=== PATIENT | male | born 1985 | race Caucasian/White ===

== ENCOUNTER 2019-06-13 01:21 | Emergency (ER) | payer OTHER ==
[2019-06-13] MEDS ORDERED: Ondansetron 4 MG/2 ML SDV IVPUSH ONE (01:49)
[2019-06-13] MEDS ORDERED: HYDROmorphone 0.5 MG/0.5 ML Syringe IVPUSH ONE (01:49)
[2019-06-13] MEDS ORDERED: Ondansetron 4 MG/2 ML SDV ONE (01:54)
--- NOTE | 2019-06-13 01:55 | EDM.PDOC ---
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 He is otherwise uninjured. He last drank some water just prior to his injury, and last ate around 17:00 [place] time. He took 5 tablets of ibuprofen en route to the ED. He states that his last tetanus vaccination was less than 5 years ago. The patient does not have a PCP. He has not received an influenza vaccine this season, but agreed to receive one here. Treatments SHOE ASSOCIATE: Reports: NSAIDS - Related Data Allergies Allergy/AdvReac Type Severity Reaction Status Date / Time No Known Allergies Allergy Verified 06/13/19 01:33 Home Meds: Home Meds . [No Known Home Meds] 06/13/19 [History] Past Medical History Musculoskeletal History: Reports: Fracture (left radius, left wrist) - Past Surgical History HEENT Surgical History: Reports: Oral Surgery (wisdom teeth extraction) Respiratory Surgical History: Reports: Other (See Below) (Repair of pectus excavatum) Musculoskeletal Surgical History: Reports: ORIF (left wrist) Social & Family History - Tobacco Use Smoking Status *Q: Never Smoker - Caffeine Use Caffeine Use: Reports: None - Alcohol Use Alcohol Use History: No - Recreational Drug Use Recreational Drug Use: No - Living Situation & Occupation Living situation: Reports: , with Spouse 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 ED EXAM, GENERAL - Physical Exam Exam: See Below Exam Limited By: No Limitations General Appearance: Alert, WD/WN, No Apparent Distress Extremities: Other (There is an ulnar deviation deformity to the left 4th finger. There is a stellate laceration to the palmar proximal aspect of the left 4th finger that extends into the webbing between the 4th and 5th fingers. There is also a laceration to the proximal radial aspect of the left 3rd finger. The patient is able to flex his left 3rd and 5th fingers, but is unable to convincingly flex his left 4th finger - it is unclear if this is because of the deformity or because of a tendinous injury. All 5 fingers are reasonably warm to palpation, and the patient reports normal sensation to all 5 fingers.) Course - Vital Signs Last Recorded V/S: Last Vital Signs Temp 36.4 C 06/13/19 01:28 Pulse 72 06/13/19 01:28 Resp 16 06/13/19 01:28 BP 139/81 06/13/19 01:28 Pulse Ox 99 06/13/19 01:28 - Orders/Labs/Meds Orders: Active Orders 24 hr Category Date Time Status Influenza Vaccine Charge [RC] .DISCHARGE Care 06/13/19 01:52 Active Hand Comp Min 3V Lt [CR] Stat Exams 06/13/19 01:48 Taken Pharmacy to Dose - InFluenza V [Pharmacy to Dose - Med 06/13/19 01:52 Once InFluenza Vaccine] 1 each IM ONETIME ONE Sodium Chloride 0.9% [Normal Saline] 1,000 ml Med 06/13/19 02:00 Active IV ASDIRECTED Medication Orders Sodium Chloride (Normal Saline) 1,000 mls @ 100 mls/hr IV ASDIRECTED MALGORZATA Last Admin: 06/13/19 02:00 Dose: 100 mls/hr Influenza Virus Vaccine (Pharmacy To Dose - Influenza Vaccine) 1 each IM ONETIME ONE Stop: 06/13/19 01:53 Meds: Medications Generic Name Dose Route Start Last Admin Trade Name Freq PRN Reason Stop Dose Admin Sodium Chloride 1,000 mls @ 100 mls/hr 06/13/19 02:00 06/13/19 02:00 Normal Saline IV 100 mls/hr ASDIRECTED MALGORZATA Administration Influenza Virus Vaccine 1 each 06/13/19 01:52 Pharmacy To Dose - Influenza Vaccine IM 06/13/19 01:53 ONETIME ONE Discontinued Medications Generic Name Dose Route Start Last Admin Trade Name Freq PRN Reason Stop Dose Admin Hydromorphone HCl 0.5 mg 06/13/19 01:49 06/13/19 02:01 Dilaudid IVPUSH 06/13/19 01:50 0.5 mg ONETIME ONE Administration Cefazolin Sodium/Dextrose 2 gm 50 mls @ 100 mls/hr 06/13/19 02:12 06/13/19 02 :22 / Premix IV 06/13/19 02:41 100 mls/hr ONETIME STA Administration Influenza Virus Vaccine 60 mcg 06/13/19 03:00 Fluzone Quad [id number] Syringe IM 06/13/19 03:01 .ONCE ONE Ondansetron HCl 4 mg 06/13/19 01:49 06/13/19 02:01 Zofran IVPUSH 06/13/19 01:50 4 mg ONETIME ONE Administration Ondansetron HCl Confirm 06/13/19 01:54 06/13/19 02:01 Zofran Administered 06/13/19 01:55 Not Given Dose 4 mg .ROUTE .[email or web address] ONE - Re-Assessments/Exams Free Text/Narrative Re-Assessment/Exam: 06/13/19 01:50 I think it likely that the patient's left 4th finger is fractured. I have ordered x-rays of his left hand to evaluate. In the meantime, his nurse will place an IV, and he will receive some IV fluid, IV Dilaudid, and IV Zofran. 06/13/19 02:05 5-view radiographs of the left hand appear to demonstrate a transverse fracture across the proximal phalanx of the left 4th finger, with moderate ulnar displacement and dorso-radial angulation. There is a small step-off at the MCP articular surface of the proximal 4th phalanx. There also appears to be a spiral fracture of the distal 4th metacarpal bone, with [id number] postero -ulnar displacement, and a comminuted intra-articular fracture of the 4th metacarpal head. No other bony injuries are seen. Formal read per the Radiologist pending. 06/13/19 02:[address] Hussein at 02:09. He would like us to give the patient 2 g of IV Ancef. Because I cannot rule out a tendinous injury to the 4th finger, he will come to the ED to evaluate the patient, and if no tendinous injury is found , he would like to place the patient into observation with the intention of taking him to the OR at 7 AM. If a tendinous injury is found, the patient will need to be transferred to [facility]. 06/13/19 02:39 Dr. Hussein has evaluated the patient and feels that the fractures are too unstable to manage here. He recommends transfer to [facility]. He recommends a simple dressing, presently. The patient does not have a preference of [facility] versus [facility]. I have pushed the x-ray images to [facility]. 06/13/19 02:53 Case discussed with Elly at [facility] One call at 02:42. Case then discussed with Dr. Frost, Hand Surgeon on-call at [facility], at 02:46. He accepted the patient for transfer to their facility. The patient will go to the ED, but then be taken to pre-op. Departure - Departure Time of Disposition: 02:53 Disposition: DC/Tfer to Acute Hospital 02 Condition: Fair Clinical Impression: Fracture of fourth metacarpal bone of left hand, Open fracture of proximal phalanx of left ring finger - Discharge Information *PRESCRIPTION DRUG MONITORING PROGRAM REVIEWED*: Not Applicable *COPY OF PRESCRIPTION DRUG MONITORING REPORT IN PATIENT EVIE: Not Applicable Forms: ED Department Discharge - My Orders Last 24 Hours: My Active Orders 06/13/19 01:48 Hand Comp Min 3V Lt [CR] Stat 06/13/19 01:52 Influenza Vaccine Charge [RC] .DISCHARGE Pharmacy to Dose - InFluenza V [Pharmacy to Dose - InFluenza Vaccine] 1 each IM ONETIME ONE 06/13/19 02:00 Sodium Chloride 0.9% [Normal Saline] 1,000 ml IV ASDIRECTED - Assessment/Plan Last 24 Hours: My Active Orders 06/13/19 01:48 Hand Comp Min 3V Lt [CR] Stat 06/13/19 01:52 Influenza Vaccine Charge [RC] .DISCHARGE Pharmacy to Dose - InFluenza V [Pharmacy to Dose - InFluenza Vaccine] 1 each IM ONETIME ONE 06/13/19 02:00 Sodium Chloride 0.9% [Normal Saline] 1,000 ml IV ASDIRECTED
[2019-06-13] MEDS ORDERED: Sodium Chloride 0.9% 1,000 ML IV SCH (02:00)
[2019-06-13] MEDS ORDERED: ceFAZolin 2 GM in Premix Bag 1 BAG IV STA (02:12)
[2019-06-13] MEDS ORDERED: FLU Vacc QS2019-20(6MOS+)/PF 60 MCG/0.5 ML SYRINGE IM ONE (03:00)
--- NOTE | 2019-06-13 10:36 | CR ---
Left hand: Four views of the left hand were obtained. Comparison: No previous hand study. Fracture identified within the distal 4th metacarpal with extension into the metacarpal head with mild comminution and mild displacement. Displaced proximal phalanx fracture within the 4th finger is seen. Diffuse soft tissue air and soft tissue swelling is noted. Small chip fracture or avulsion fracture is also noted off the base of the proximal phalanx. Impression: 1. Displaced fractures involving the proximal phalanx of the left 4th finger and within the distal left 4th metacarpal which extends into the metacarpal head. Additional small chip or avulsion fracture of the base of the proximal phalanx. 2. Soft tissue swelling and soft tissue air. Diagnostic code #3 This report was dictated in [place] Standard Time
== END 2019-06-13 03:35 ==
LOC: JD.ED 01:21
DX: S62.615B Displaced fracture of proximal phalanx of left ring finger, initial encounter for open fracture (principal); S62.635A Displaced fracture of distal phalanx of left ring finger, initial encounter for closed fracture; W23.0XXA Caught, crushed, jammed, or pinched between moving objects, initial encounter; Y92.89 Other specified places as the place of occurrence of the external cause; Y99.0 Civilian activity done for income or pay
CPT/HCPCS: 73130; 96365; 96375; 99284; J0690; J1170; J2405; J7030